=== PATIENT | male | born 1995 | race Caucasian/White ===

== ENCOUNTER 2018-08-23 11:24 | Outpatient (CLI) | payer BC ==
[~2018-08-23] VITALS: Ht 175.3 cm; Wt 99.5 kg
[~2018-08-23 11:24] MED LIST: ESCI20TA PO; OXYC1TAB87 PO
[2018-08-23 11:30] VITALS: BP 128/91
[2018-08-23] MEDS ORDERED: ONDANSETRON 4 MG/2 ML (SDV) Z0FRAN IV PRN (11:45)
[2018-08-23] MEDS ORDERED: DIPHENOXYLATE/ATROPINE 2.5MG/0.025MG (LOMOTIL) TAB PO PRN (11:45)
[2018-08-23] MEDS ORDERED: D5 LR IV SOLUTION 1,000 ML IV NR (11:45)
[2018-08-23] MEDS ORDERED: ACETAMINOPHEN 325 MG TABLET PO PRN (11:45)
[2018-08-23] MEDS ORDERED: D5 NS W/KCL 20 MEQ/L 1,000 ML IV NR (12:44)
[2018-08-23 15:00] VITALS: BP 128/91
== END 2018-08-23 15:00 | disposition home or self-care (01) ==
LOC: SDC 11:24
PROVIDERS: ATTEND Internal Medicine
DX: A08.4 Viral intestinal infection, unspecified (principal); E86.0 Dehydration
CPT/HCPCS: 96365; 96366; 96374

== ENCOUNTER 2021-02-24 05:29 | Outpatient (RCR) | payer SELFPAY ==
[~2021-02-24] VITALS: Ht 172.7 cm; Wt 118.0 kg
[~2021-02-24 05:29] MED LIST changes: +BREX2TAB PO; +CETI10TA49 PO; +ONDN4T PO; +PANT40GR PO; +PARO30TA3 PO
== END 2021-02-24 10:21 | disposition home or self-care (01) ==
LOC: PREOP 05:29
PROVIDERS: ATTEND Internal Medicine
DX: Z01.818 Encounter for other preprocedural examination (principal); R11.2 Nausea with vomiting, unspecified; Z20.822 Contact with and (suspected) exposure to COVID-19
CPT/HCPCS: 87635

== ENCOUNTER 2021-02-26 09:25 | Day surgery (SDC) | payer SELFPAY ==
--- NOTE | 2021-02-23 06:13 | HISTORY AND PHYSICAL ---
DATE OF SERVICE: EGD HISTORY AND PHYSICAL HISTORY OF PRESENT ILLNESS: The patient is a 25-year-old white male referred by Dr. Finney for EGD evaluation. He reports 2 to 3-month history of postprandial nausea and vomiting. Predominantly, it happens after his evening meal, which is his largest meal of the day. 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 He denies any associated pain and reports that the vomiting sometimes with dry heaves occurs several times a week, 30 to 60 minutes after the meal. He denies abdominal pain or back pain associated. He does not believe he has lost any significant weight since the onset of the symptoms. He has been overweight all of his adult life. He has had reflux symptoms for many years with no previous history of EGD. His father sounds as though he may have had Stark's esophagus. He reportedly had some form of esophageal surgery that may have been Bre fundoplication as he had significant reflux as well. He is not aware of any family history for GI tract malignancy including gastric or esophageal cancer. He denies melena or bright red blood per rectum. PAST SURGICAL HISTORY: He has had an appendectomy 4 to 5 years ago and has had wisdom tooth extraction. SOCIAL HISTORY: He does not smoke. No significant alcohol intake. 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 MEDICATIONS: Include Rexulti 2 mg daily, paroxetine 60 mg daily, Zyrtec daily, pantoprazole 40 mg daily, Zofran p.r.n. PHYSICAL EXAMINATION: GENERAL: Reveals a white male, overweight, in no acute distress. VITAL SIGNS: Blood pressure 120/80, heart rate 70 and regular. HEENT: Unremarkable. Sclerae nonicteric. CHEST: Clear. CARDIOVASCULAR: Reveals a regular rate and rhythm without murmur, S3 or S4. ABDOMEN: Soft, supple without mass, organomegaly or tenderness. EXTREMITIES: Reveal no cyanosis, clubbing or edema. ASSESSMENT AND PLAN: For further evaluation of postprandial nausea and vomiting as well as gastroesophageal reflux sounding symptoms refractory to H2 proton pump inhibitor therapy. Job ID: [id number] DocumentID: [id number] Dictated Date: 02/18/2021 14:59:19 [employer] Date: 02/18/2021 15:18:04 Dictated By: SUSANA ABREU MD
[~2021-02-26] VITALS: Ht 172.7 cm; Wt 118.0 kg
[2021-02-26] VITALS (10 sets, daily range): BP systolic 114–151; BP diastolic 72–96
[2021-02-26] MEDS ORDERED: D5 LR IV SOLUTION 1,000 ML IV STA (09:34)
[2021-02-26] MEDS ORDERED: D5 LR IV SOLUTION 1,000 ML IV ONE (09:45)
[2021-02-26] MEDS ORDERED: MIDAZOLAM 5 MG/5 ML (VERSED) VIAL IV ONE (09:45)
[2021-02-26] MEDS ORDERED: HURRICAINE EXT TUBE (BENZOCAINE) XX PRN (09:45)
[2021-02-26] MEDS ORDERED: fentaNYL INJ 100 MCG/2 ML AMP IVP ONE (09:45)
[2021-02-26] MEDS ORDERED: LIDOCAINE JELLY 2% 6 ML SYRINGE MM PRN (09:45)
--- NOTE | 2021-02-26 10:51 | Pre-Op Note & Conscious Sedat ---
Pre-Operative Progress Note H&P Reviewed The H&P was reviewed, patient examined and no changes noted. Date H&P Reviewed: Feb 26, 2021 Time H&P Reviewed: 10:10 Conscious Sedation Pre-Proced ASA Score 2 For ASA 3 and 4: Consider anesthesia and medical clearance. Also, for patients with a history of failed moderate sedation consider anesthesia. Airway Lungs Heart ASA score ASA 1: a normal healthy patient ASA 2: a patient with a mild systemic disease (mid diabetes, controlled hypertension, obesity ASA 3: a patient with a severe systemic disease that limits activity (angina, COPD, prior Myocardial infarction) ASA 4: a patient with an incapacitating disease that is a constant threat to life (CHF, renal failure) ASA 5: a moribund patient not expected to survive 24 hrs. (ruptured aneurysm) ASA 6: a declared brain- patient whose organs are being harvested. For emergent operations, add the letter E after the classification Mallampati Classification Grade 2 Sedation Plan Analgesia, Amnesia, Plan communicated to team members, Discussed options with patient/fam, Discussed risks with patient/fam The patient is an appropriate candidate to undergo the planned procedure, sedation, and anesthesia. The patient immediately re-assessed prior to indication. SUSANA ABREU MD Feb 26, 2021 10:51
[2021-02-26] MEDS ORDERED: MTC10T PO (11:50)
--- NOTE | 2021-02-26 17:21 | OPERATIVE REPORT ---
DATE OF SERVICE: EGD SUMMARY INDICATION FOR THE PROCEDURE: Refractory reflux and postprandial nausea and vomiting. DESCRIPTION OF PROCEDURE: The patient was placed in the left lateral decubitus position. The endoscope was inserted in the oral cavity and under direct visualization, the esophagus was intubated. Endoscope was passed down the esophagus through the stomach and second portion of the duodenum. Careful inspection was made as the endoscope was withdrawn. The patient tolerated the procedure well. FINDINGS: The posterior pharynx, true and false vocal folds, epiglottis and arytenoid aperture were unremarkable to digital inspection. Proximal, mid and distal esophagus were unremarkable other than a small sliding hiatal hernia and evidence for significant sphincter laxity at the level of the lower esophageal sphincter. There was no evidence for rings, webs, strictures or Stark's change. Biopsy was obtained from the Z-line. The cardia, fundus, antrum, pylorus, pyloric channel and duodenal bulb were unremarkable to visual inspection. A biopsy was obtained and submitted from the antrum for Helicobacter evaluation. ASSESSMENT: Small sliding hiatal hernia was present with evidence for lower esophageal sphincter laxity. There is no evidence for Stark's change or erosive esophagitis. As the patient predominantly has postprandial vomiting after his evening meal, we initiated metoclopramide 10 mg to be taken half an hour before his evening meal. Discussed the importance of decreasing portions. Unfortunately, currently he is on 2 medications for reported autism spectrum disorder that can both stimulate appetite, Rexulti and Paxil. He was advised to discuss the possibility of medication change with [facility] where he receives his psychiatric care. Job ID: [id number] DocumentID: [id number] Dictated Date: 02/26/2021 12:07:10 [employer] Date: 02/26/2021 17:20:23 Dictated By: SUSANA ABREU MD
== END 2021-02-26 12:17 ==
LOC: ENDO 09:25
PROVIDERS: ATTEND Internal Medicine
DX: K21.9 Gastro-esophageal reflux disease without esophagitis (principal); K44.9 Diaphragmatic hernia without obstruction or gangrene; K31.89 Other diseases of stomach and duodenum; Z90.89 Acquired absence of other organs; Z79.899 Other long term (current) drug therapy
CPT/HCPCS: 88305